=== PATIENT | female | born 1940 | race Caucasian/White ===

== ENCOUNTER 2016-07-31 22:59 | Emergency (ER) | payer MEDICARE, MEDICAID ==
[~2016-07-31] VITALS: Ht 160 cm; Wt 67.0 kg
[~2016-07-31 22:59] MED LIST: ALBU8.5H5 INH; AMLO10TA2 PO; ASPI-515 PO; BENA10TA2 PO; CIPR500T3 PO; DOCU-144 PO; DULCOLAX; FURO-93 PO; GABA600T2 PO; GABAPENTIN; HYDR-3307; LASIX; LEVO75TA; MORP15TA39 PO; NICO1PAT5 TD; ONDA4TAB10 PO; OXYC-229 PO; PROMETHAZINE; ULTRAM
[2016-08-01] MEDS ORDERED: OXYcodone/APAP 5/325MG TABLET ONE (00:17)
[2016-08-01] MEDS ORDERED: OXYcodone/APAP 5/325MG TABLET PO ONE (00:30)
[2016-08-01 01:21] VITALS: BP 166/58
== END 2016-08-01 01:23 | disposition home or self-care (01) ==
LOC: ED 08-01 01:17
DX: S16.1XXA Strain of muscle, fascia and tendon at neck level, initial encounter (principal); S80.02XA Contusion of left knee, initial encounter; E03.9 Hypothyroidism, unspecified; J44.9 Chronic obstructive pulmonary disease, unspecified; I10 Essential (primary) hypertension; F17.210 Nicotine dependence, cigarettes, uncomplicated; W07.XXXA Fall from chair, initial encounter; Y93.89 Activity, other specified; Y92.89 Other specified places as the place of occurrence of the external cause; Y99.8 Other external cause status
CPT/HCPCS: 72040; 99284

== ENCOUNTER 2016-09-04 12:41 | Inpatient (IN) | payer MEDICARE, MEDICAID ==
[~2016-09-04] VITALS: Ht 162.6 cm; Wt 65.0 kg
[2016-09-04] MEDS ORDERED: OXYcodone/APAP 5/325MG TABLET ONE ×2 (13:59→14:41)
[2016-09-04] MEDS ORDERED: OXYcodone/APAP 5/325MG TABLET PO ONE ×2 (14:00→15:00)
[2016-09-04] MEDS ORDERED: HYDROmorphone 1 MG/ML, 1ML ONE (15:48)
[2016-09-04] MEDS ORDERED: ONDANSETRON ODT 4 MG ONE (15:48)
[2016-09-04] MEDS ORDERED: MORPHINE SULFATE 4 MG/ML, 1ML ONE ×2 (15:50→16:01)
[2016-09-04] MEDS ORDERED: ONDANSETRON ODT 4 MG PO ONE (16:00)
[2016-09-04] MEDS ORDERED: MORPHINE SULFATE 4 MG/ML, 1ML IVPush PRN ×2 (16:30→17:00)
[2016-09-04] MEDS ORDERED: SODIUM CHLORIDE FLUSH 10ML SYR IVF ONE (17:00)
[2016-09-04 17:38] LABS: BLOOD UREA NITROGEN 27 mg/dL (7-18)
[2016-09-04] MEDS ORDERED: PROCHLORPERAZINE 5 MG/ML, 2ML IM PRN (19:30)
[2016-09-04 20:23] VITALS: BP 227/78
[2016-09-04] MEDS ORDERED: DOCUSATE 100 MG CAPSULE PO PRN (21:00)
[2016-09-04] MEDS ORDERED: TRAZODONE 50MG TABLET PO PRN (21:00)
[2016-09-04] MEDS ORDERED: BISACODYL 10 MG SUPP PR PRN (21:00)
[2016-09-04] MEDS ORDERED: POLYETHYLENE GLYCOL 17 GM PACKET PO PRN (21:00)
[2016-09-04] MEDS: HEPARIN 5,000 UNITS/ML, 1ML SQ SCH (21:00)
[2016-09-04] MEDS: KETOROLAC 30 MG/1 ML IVPush PRN (22:00)
[2016-09-04] MEDS ORDERED: ALBUTEROL SULFATE 2.5 MG/3 ML NPPB PRN (22:00)
[2016-09-04] MEDS: NICOTINE 14MG/24 HR PATCH.TD24 TD SCH (22:00)
[2016-09-04] MEDS: hydrALAzine 20 MG/ML, 1ML IV PRN (22:00)
[2016-09-04 22:15] VITALS: BP 141/68
[2016-09-04] MEDS: SODIUM CHLORIDE 0.9% 1,000 ML IV SCH (23:59)
[2016-09-05 00:05] VITALS: BP 138/66
[2016-09-05] MEDS: KETOROLAC 30 MG/1 ML IVPush PRN ×4 (04:23→23:23)
[2016-09-05] MEDS: HEPARIN 5,000 UNITS/ML, 1ML SQ SCH ×3 (05:00→21:00)
[2016-09-05 05:14] LABS: BLOOD UREA NITROGEN 30 mg/dL (7-18)
[2016-09-05 05:31] LABS: ASPARTATE AMINO TRANSFERASE 17 U/L (15-37)
[2016-09-05] MEDS: SODIUM CHLORIDE 0.9% 1,000 ML IV SCH ×3 (06:08→20:50)
[2016-09-05 07:10] VITALS: BP 137/69
[2016-09-05] MEDS: ACETAMINOPHEN 325 MG TABLET PO PRN ×3 (08:09→20:47)
[2016-09-05 12:30] VITALS: BP 149/64
[2016-09-05] MEDS ORDERED: ONDANSETRON 4 MG TABLET PO PRN (17:30)
[2016-09-05 19:10] VITALS: BP 182/73
[2016-09-05] MEDS: NICOTINE 14MG/24 HR PATCH.TD24 TD SCH (19:48)
[2016-09-05] MEDS: hydrALAzine 20 MG/ML, 1ML IV PRN (19:48)
[2016-09-05] MEDS ORDERED: OXYcodone/APAP 10/325MG TABLET PO ONE (21:30)
[2016-09-06 00:07] VITALS: BP 175/71
[2016-09-06 01:51] VITALS: BP 186/76
[2016-09-06] MEDS: LABETALOL 5MG/ML, 20ML IV PRN (01:57)
[2016-09-06] MEDS: ACETAMINOPHEN 325 MG TABLET PO PRN ×2 (03:26→08:52)
[2016-09-06] MEDS: SODIUM CHLORIDE 0.9% 1,000 ML IV SCH (03:29)
[2016-09-06 05:00] VITALS: BP 170/84
[2016-09-06] MEDS: HEPARIN 5,000 UNITS/ML, 1ML SQ SCH ×3 (05:00→21:00)
[2016-09-06] MEDS: KETOROLAC 30 MG/1 ML IVPush PRN ×2 (05:25→19:26)
[2016-09-06 05:40] LABS: BLOOD UREA NITROGEN 21 mg/dL (7-18)
[2016-09-06 06:53] VITALS: BP 182/74
[2016-09-06] MEDS: hydrALAzine 20 MG/ML, 1ML IV PRN ×2 (08:52→21:50)
[2016-09-06] MEDS ORDERED: OXYcodone/APAP 10/325MG TABLET ONE (09:41)
[2016-09-06] MEDS ORDERED: OXYcodone/APAP 10/325MG TABLET PO ONE (10:00)
[2016-09-06] MEDS ORDERED: LORazepam 1MG TABLET PO ONE (11:00)
[2016-09-06 12:29] VITALS: BP 157/71
[2016-09-06] MEDS ORDERED: LORazepam 1MG TABLET PO PRN (15:30)
[2016-09-06 21:42] VITALS: BP 191/75
[2016-09-06] MEDS: NICOTINE 14MG/24 HR PATCH.TD24 TD SCH (21:51)
[2016-09-07 00:09] VITALS: BP 180/78
[2016-09-07] MEDS: LABETALOL 5MG/ML, 20ML IV PRN (00:10)
[2016-09-07] MEDS: ACETAMINOPHEN 325 MG TABLET PO PRN (00:10)
[2016-09-07 01:00] VITALS: BP 169/80
[2016-09-07] MEDS: KETOROLAC 30 MG/1 ML IVPush PRN ×2 (01:35→07:51)
[2016-09-07 02:22] VITALS: BP 166/86
[2016-09-07] MEDS ORDERED: OXYcodone/APAP 10/325MG TABLET PO PRN (03:30)
[2016-09-07] MEDS: HEPARIN 5,000 UNITS/ML, 1ML SQ SCH (05:00)
[2016-09-07 05:52] VITALS: BP 173/70
[2016-09-07] MEDS: hydrALAzine 20 MG/ML, 1ML IV PRN (06:27)
[2016-09-07 07:08] VITALS: BP 125/67
[2016-09-07] MEDS ORDERED: LORazepam 1MG TABLET PO ONE (08:00)
== END 2016-09-07 13:27 | disposition home or self-care (01) | DRG 555 ==
LOC: ED 14:28 → EDIP 18:52 → 3NE 20:15
PROVIDERS: ADMIT Internal Medicine; ATTEND Internal Medicine
DX: M25.551 Pain in right hip (principal); R53.2 Functional quadriplegia; E87.1 Hypo-osmolality and hyponatremia; N18.3 Chronic kidney disease, stage 3 (moderate); I12.9 Hypertensive chronic kidney disease with stage 1 through stage 4 chronic kidney disease, or unspecified chronic kidney disease; J44.9 Chronic obstructive pulmonary disease, unspecified; E03.9 Hypothyroidism, unspecified; F17.210 Nicotine dependence, cigarettes, uncomplicated; G89.29 Other chronic pain; R62.7 Adult failure to thrive; W01.0XXA Fall on same level from slipping, tripping and stumbling without subsequent striking against object, initial encounter; W05.0XXA Fall from non-moving wheelchair, initial encounter; Z96.641 Presence of right artificial hip joint; Z99.3 Dependence on wheelchair; Z90.710 Acquired absence of both cervix and uterus; Z90.49 Acquired absence of other specified parts of digestive tract; Z59.0 Homelessness; Z98.1 Arthrodesis status; Z88.6 Allergy status to analgesic agent; Z71.6 Tobacco abuse counseling; Z88.8 Allergy status to other drugs, medicaments and biological substances; M54.9 Dorsalgia, unspecified; Z76.5 Malingerer [conscious simulation]
CPT/HCPCS: 36415; 76857; 80048; 80053; 82040; 83735; 84439; 84443; 85025; 96374; J1885; Q0162; J0360; J7030

== ENCOUNTER 2016-09-27 03:31 | Emergency (ER) | payer MEDICARE, MEDICAID ==
[~2016-09-27] VITALS: Ht 160 cm; Wt 65.0 kg
[2016-09-27 03:38] VITALS: BP 183/92
== END 2016-09-27 05:01 | disposition home or self-care (01) ==
LOC: ED 05:00
DX: M25.561 Pain in right knee (principal); M79.661 Pain in right lower leg; G89.29 Other chronic pain; J44.9 Chronic obstructive pulmonary disease, unspecified; I10 Essential (primary) hypertension; F17.200 Nicotine dependence, unspecified, uncomplicated
CPT/HCPCS: 99283

== ENCOUNTER 2016-09-29 23:37 | Emergency (ER) | payer MEDICARE, MEDICAID ==
[~2016-09-29] VITALS: Ht 160 cm; Wt 54.5 kg
[2016-09-30] MEDS ORDERED: OXYcodone/APAP 10/325MG TABLET ONE (00:19)
[2016-09-30] MEDS ORDERED: OXYcodone/APAP 10/325MG TABLET PO ONE (00:30)
[2016-09-30 01:03] VITALS: BP 176/88
== END 2016-09-30 01:09 | disposition home or self-care (01) ==
LOC: ED 09-30 01:01
DX: G89.4 Chronic pain syndrome (principal); M79.604 Pain in right leg; Z79.82 Long term (current) use of aspirin; Z88.5 Allergy status to narcotic agent
CPT/HCPCS: 99282

== ENCOUNTER 2016-10-01 22:15 | Emergency (ER) | payer MEDICARE, MEDICAID ==
[~2016-10-01] VITALS: Ht 160 cm; Wt 52.6 kg
[2016-10-01 23:53] VITALS: BP 141/74
== END 2016-10-01 23:55 | disposition home or self-care (01) ==
LOC: ED 22:53
DX: G89.29 Other chronic pain (principal); M25.551 Pain in right hip; M25.561 Pain in right knee; M25.562 Pain in left knee; M79.651 Pain in right thigh
CPT/HCPCS: 99281

== ENCOUNTER 2016-10-03 22:27 | Emergency (ER) | payer MEDICARE, MEDICAID ==
[~2016-10-03] VITALS: Ht 160 cm; Wt 60.0 kg
[2016-10-04] MEDS ORDERED: MORPHINE SULFATE 4 MG/ML, 1ML IVPush PRN
[2016-10-04] MEDS ORDERED: SODIUM CHLORIDE 0.9% 1,000ML IVBOLUS ONE
[2016-10-04] MEDS ORDERED: ONDANSETRON 2MG/ML, 2ML IVPush ONE
[2016-10-04] MEDS ORDERED: MORPHINE SULFATE 4 MG/ML, 1ML ONE ×2 (00:36→02:30)
[2016-10-04] MEDS ORDERED: ONDANSETRON 2MG/ML, 2ML ONE (00:36)
[2016-10-04 00:42] LABS: ASPARTATE AMINO TRANSFERASE 17 U/L (15-37); BLOOD UREA NITROGEN 29 mg/dL (7-18)
[2016-10-04 03:22] VITALS: BP 158/73
== END 2016-10-04 04:17 | disposition home or self-care (01) ==
LOC: ED 22:30
DX: R19.7 Diarrhea, unspecified (principal); M25.561 Pain in right knee; M25.551 Pain in right hip; M79.651 Pain in right thigh; G89.29 Other chronic pain; M54.5 Low back pain; I10 Essential (primary) hypertension; E03.9 Hypothyroidism, unspecified; J44.9 Chronic obstructive pulmonary disease, unspecified; F17.210 Nicotine dependence, cigarettes, uncomplicated
CPT/HCPCS: 36415; 80053; 83605; 85025; 87040; 87324; 89055; 93005

== ENCOUNTER 2016-10-04 20:30 | Emergency (ER) | payer MEDICARE, MEDICAID ==
[~2016-10-04] VITALS: Ht 160 cm; Wt 61.4 kg
[2016-10-04 20:32] VITALS: BP 149/82
[2016-10-04] MEDS ORDERED: OXYcodone/APAP 5/325MG TABLET PO ONE (22:00)
[2016-10-04] MEDS ORDERED: OXYcodone/APAP 5/325MG TABLET ONE (22:04)
== END 2016-10-04 22:19 | disposition home or self-care (01) ==
LOC: ED 21:01
DX: M25.551 Pain in right hip (principal); I10 Essential (primary) hypertension; E03.9 Hypothyroidism, unspecified; J44.9 Chronic obstructive pulmonary disease, unspecified
CPT/HCPCS: 99282

== ENCOUNTER 2016-10-07 00:24 | Emergency (ER) | payer MEDICARE, MEDICAID ==
[2016-10-07] MEDS ORDERED: OXYcodone/APAP 5/325MG TABLET ONE (02:32)
== END 2016-10-07 03:05 ==
LOC: ED 00:24
DX: G89.29 Other chronic pain (principal); M79.604 Pain in right leg; R10.9 Unspecified abdominal pain; Z88.6 Allergy status to analgesic agent; Z88.8 Allergy status to other drugs, medicaments and biological substances
CPT/HCPCS: 99281

== ENCOUNTER 2016-11-07 09:49 | Emergency (ER) | payer MEDICARE, MEDICAID ==
[~2016-11-07] VITALS: Ht 160 cm; Wt 60.0 kg
[~2016-11-07 09:49] MED LIST changes: +MORP-52 PO; -MORP15TA39 PO
[2016-11-07] MEDS ORDERED: SODIUM CHLORIDE 0.9% 1,000 ML IV ONE (10:51)
[2016-11-07] MEDS ORDERED: MAALOX/HYOSCYAMINE/LIDOCAINE 45 ML BOTTLE PO ONE (11:00)
[2016-11-07] MEDS ORDERED: FAMOTIDINE 20 MG/2 ML IVP ONE (11:00)
[2016-11-07] MEDS ORDERED: ONDANSETRON 2MG/ML, 2ML IVPush ONE (11:00)
[2016-11-07] MEDS ORDERED: ONDANSETRON 2MG/ML, 2ML ONE (11:52)
[2016-11-07] MEDS ORDERED: MAALOX/HYOSCYAMINE/LIDOCAINE 45 ML BOTTLE ONE (11:52)
[2016-11-07] MEDS ORDERED: FAMOTIDINE 20 MG/2 ML ONE (11:53)
[2016-11-07 12:56] LABS: ASPARTATE AMINO TRANSFERASE 20 U/L (15-37); BLOOD UREA NITROGEN 26 mg/dL (7-18)
[2016-11-07 14:48] VITALS: BP 184/64
== END 2016-11-07 14:52 | disposition home or self-care (01) ==
LOC: ED 10:23
DX: N30.01 Acute cystitis with hematuria (principal); E03.9 Hypothyroidism, unspecified; G89.29 Other chronic pain; I12.9 Hypertensive chronic kidney disease with stage 1 through stage 4 chronic kidney disease, or unspecified chronic kidney disease; N18.3 Chronic kidney disease, stage 3 (moderate); J44.9 Chronic obstructive pulmonary disease, unspecified; Z90.49 Acquired absence of other specified parts of digestive tract; Z99.3 Dependence on wheelchair; M54.9 Dorsalgia, unspecified
CPT/HCPCS: 36415; 74022; 80053; 81001; 83605; 83690; 85025; 87077; 87086; 87186; 96361; 96374; 96375; 99285; J2405; J7030; S0028

== ENCOUNTER 2017-01-02 06:40 | Emergency (ER) | payer MEDICARE, MEDICAID ==
[~2017-01-02] VITALS: Ht 160 cm; Wt 60.0 kg
[~2017-01-02 06:40] MED LIST changes: +NICO1PAT16 TD; -NICO1PAT5 TD; -OXYC-229 PO; +OXYC-307 PO
[2017-01-02 06:41] VITALS: BP 157/104
[2017-01-02] MEDS ORDERED: SODIUM CHLORIDE FLUSH 10ML SYR IVF ONE (07:30)
[2017-01-02] MEDS ORDERED: SODIUM CHLORIDE 0.9% 1,000ML IVBOLUS ONE (07:30)
== END 2017-01-02 08:08 | disposition home or self-care (01) ==
LOC: ED 07:00
DX: R19.7 Diarrhea, unspecified (principal); J44.9 Chronic obstructive pulmonary disease, unspecified; I12.9 Hypertensive chronic kidney disease with stage 1 through stage 4 chronic kidney disease, or unspecified chronic kidney disease; N18.3 Chronic kidney disease, stage 3 (moderate); E03.9 Hypothyroidism, unspecified; Z79.82 Long term (current) use of aspirin; Z90.49 Acquired absence of other specified parts of digestive tract; Z90.710 Acquired absence of both cervix and uterus
CPT/HCPCS: 87324; 99283; 99285

== ENCOUNTER 2017-01-25 08:16 | Emergency (ER) | payer MEDICARE, MEDICAID ==
[~2017-01-25] VITALS: Ht 160 cm; Wt 56.8 kg
[2017-01-25 08:20] VITALS: BP 149/75
== END 2017-01-25 09:34 | disposition home or self-care (01) ==
LOC: ED 09:01
DX: K58.0 Irritable bowel syndrome with diarrhea (principal); E73.9 Lactose intolerance, unspecified; E03.9 Hypothyroidism, unspecified; J44.9 Chronic obstructive pulmonary disease, unspecified; I10 Essential (primary) hypertension; Z90.49 Acquired absence of other specified parts of digestive tract; Z90.710 Acquired absence of both cervix and uterus
CPT/HCPCS: 99282

== ENCOUNTER 2017-05-04 14:20 | Emergency (ER) | payer MEDICARE, MEDICAID ==
[~2017-05-04] VITALS: Ht 160 cm; Wt 62.0 kg
[~2017-05-04 14:20] MED LIST changes: +NICO-487 TD; -NICO1PAT16 TD
[2017-05-04 14:22] VITALS: BP 150/67
[2017-05-04 15:37] LABS: BASOPHILS # (AUTO) 0.02 x10^3/uL (0-0.1); BASOPHILS % (AUTO) 0 % (0-1); EOSINOPHILS # (AUTO) 0.19 x10^3/uL (0-0.4); EOSINOPHILS % (AUTO) 3 % (1-7); LYMPHOCYTES # (AUTO) 1.77 x10^3/uL (1-3.4); LYMPHOCYTES % (AUTO) 31 % (22-44); MD NO; MEAN CORPUSCULAR HEMOGLOBIN 31.4 pg (27.0-34.8); MEAN CORPUSCULAR HGB CONC 33.5 g/dL (32.4-35.8); MEAN CORPUSCULAR VOLUME 93.8 fL (80-100); MEAN PLATELET VOLUME 8.2 fL (7.4-10.4); MONOCYTES # (AUTO) 0.49 x10^3/uL (0.2-0.8); MONOCYTES % (AUTO) 8 % (2-9); NEUTROPHILS # (AUTO) 3.32 x10^3/uL (1.8-6.8); NEUTROPHILS % (AUTO) 57 % (42-75); PLATELET COUNT 156 x10^3/uL (130-400); RED BLOOD COUNT 4.46 x10^6/uL (3.82-5.3); RED CELL DISTRIBUTION WIDTH 13.7 % (9.6-15.2)
[2017-05-04 15:49] LABS: ALBUMIN 3.6 g/dL (3.4-5.0); ANION GAP 5 mmol/L (5-15); CALCIUM 9.2 mg/dL (8.5-10.1); CHLORIDE 106 mmol/L (98-107); CREATININE 1.67 mg/dL (0.55-1.02)
[2017-05-04 16:22] LABS: MICROSCOPIC AUTO
[2017-05-04 16:24] LABS: CULTURE INDICATED? YES
== END 2017-05-04 17:31 | disposition home or self-care (01) ==
LOC: ED 17:25
DX: N30.90 Cystitis, unspecified without hematuria (principal); K14.6 Glossodynia; J44.9 Chronic obstructive pulmonary disease, unspecified; E03.9 Hypothyroidism, unspecified; I12.9 Hypertensive chronic kidney disease with stage 1 through stage 4 chronic kidney disease, or unspecified chronic kidney disease; N18.3 Chronic kidney disease, stage 3 (moderate)
CPT/HCPCS: 36415; 80048; 81001; 82040; 85025; 87077; 87086; 87186; 99284

== ENCOUNTER 2017-05-05 14:23 | Emergency (ER) | payer MEDICARE, MEDICAID ==
[~2017-05-05] VITALS: Ht 160 cm; Wt 61.0 kg
[2017-05-05 14:32] VITALS: BP 185/74
[2017-05-05] MEDS ORDERED: SODIUM CHLORIDE 0.9% 1,000 ML IV ONE (14:36)
[2017-05-05 14:54] LABS: BASOPHILS # (AUTO) 0.03 x10^3/uL (0-0.1); BASOPHILS % (AUTO) 1 % (0-1); EOSINOPHILS # (AUTO) 0.15 x10^3/uL (0-0.4); EOSINOPHILS % (AUTO) 2 % (1-7); LYMPHOCYTES # (AUTO) 1.64 x10^3/uL (1-3.4); LYMPHOCYTES % (AUTO) 25 % (22-44); MD NO; MEAN CORPUSCULAR HGB CONC 34.1 g/dL (32.4-35.8); MEAN CORPUSCULAR VOLUME 93.9 fL (80-100); MEAN PLATELET VOLUME 8.3 fL (7.4-10.4); MONOCYTES # (AUTO) 0.46 x10^3/uL (0.2-0.8); MONOCYTES % (AUTO) 7 % (2-9); NEUTROPHILS # (AUTO) 4.26 x10^3/uL (1.8-6.8); NEUTROPHILS % (AUTO) 65 % (42-75); PLATELET COUNT 154 x10^3/uL (130-400); RED CELL DISTRIBUTION WIDTH 13.6 % (9.6-15.2)
[2017-05-05] MEDS ORDERED: PLEASE ENTER HEIGHT AND WEIGHT MC SCH (15:00)
[2017-05-05] MEDS ORDERED: SODIUM CHLORIDE FLUSH 10ML SYR IVF ONE (15:00)
[2017-05-05] MEDS ORDERED: SODIUM CHLORIDE 0.9% 1,000ML IVBOLUS ONE (15:00)
[2017-05-05] MEDS ORDERED: MECLIZINE CHEWABLE 25 MG TAB PO ONE (15:00)
[2017-05-05 15:05] LABS: ALBUMIN 3.6 g/dL (3.4-5.0); ANION GAP 6 mmol/L (5-15); CALCIUM 8.9 mg/dL (8.5-10.1); CHLORIDE 103 mmol/L (98-107)
[2017-05-05] MEDS ORDERED: MECLIZINE CHEWABLE 25 MG TAB ONE (15:24)
== END 2017-05-05 17:25 | disposition home or self-care (01) ==
LOC: ED 17:06
DX: R42 Dizziness and giddiness (principal); E03.9 Hypothyroidism, unspecified; F17.210 Nicotine dependence, cigarettes, uncomplicated; J44.9 Chronic obstructive pulmonary disease, unspecified; I12.9 Hypertensive chronic kidney disease with stage 1 through stage 4 chronic kidney disease, or unspecified chronic kidney disease; N18.3 Chronic kidney disease, stage 3 (moderate)
CPT/HCPCS: 36415; 71045; 80048; 82040; 85025; 99285

== ENCOUNTER 2017-05-24 12:18 | Inpatient (IN) | payer MEDICARE, MEDICAID ==
[~2017-05-24] VITALS: Ht 160 cm; Wt 71.8 kg
[2017-05-24] MEDS ORDERED: SODIUM CHLORIDE FLUSH 10ML SYR IVF ONE (13:00)
[2017-05-24] MEDS ORDERED: ONDANSETRON 2MG/ML, 2ML IVPush ONE (13:00)
[2017-05-24] MEDS ORDERED: SODIUM CHLORIDE 0.9% 1,000ML IVBOLUS ONE (13:00)
[2017-05-24] MEDS ORDERED: LORazepam 2 MG/ML, 1ML IVPush ONE (13:00)
[2017-05-24 13:20] LABS: BASOPHILS # (AUTO) 0.03 x10^3/uL (0-0.1); BASOPHILS % (AUTO) 0 % (0-1); EOSINOPHILS # (AUTO) 0.12 x10^3/uL (0-0.4); EOSINOPHILS % (AUTO) 2 % (1-7); LYMPHOCYTES # (AUTO) 1.13 x10^3/uL (1-3.4); LYMPHOCYTES % (AUTO) 18 % (22-44); MD NO; MEAN CORPUSCULAR HEMOGLOBIN 32.2 pg (27.0-34.8); MEAN CORPUSCULAR HGB CONC 34.5 g/dL (32.4-35.8); MEAN CORPUSCULAR VOLUME 93.3 fL (80-100); MONOCYTES % (AUTO) 5 % (2-9); NEUTROPHILS # (AUTO) 4.68 x10^3/uL (1.8-6.8); NEUTROPHILS % (AUTO) 75 % (42-75); PLATELET COUNT 165 x10^3/uL (130-400); RED BLOOD COUNT 4.21 x10^6/uL (3.82-5.3); RED CELL DISTRIBUTION WIDTH 13.4 % (9.6-15.2)
[2017-05-24 13:35] LABS: TROPONIN I < 0.015 ng/mL (0.000-0.045)
[2017-05-24] MEDS ORDERED: LORazepam 1MG TABLET ONE (13:42)
[2017-05-24] MEDS ORDERED: LORazepam 1MG TABLET PO ONE ×2 (14:00→14:30)
[2017-05-24 14:33] LABS: ALBUMIN 3.4 g/dL (3.4-5.0); ANION GAP 7 mmol/L (5-15); CHLORIDE 110 mmol/L (98-107); CREATININE 1.71 mg/dL (0.55-1.02)
[2017-05-24 14:59] LABS: CULTURE INDICATED? YES; MICROSCOPIC INDICATED
[2017-05-24] MEDS ORDERED: CEFTRIAXONE 1,000 MG in SODIUM CHLORIDE 0.9% 50 ML IV ONE (15:30)
[2017-05-24] MEDS ORDERED: SODIUM CHLORIDE 0.9% 1,000 ML IV SCH (16:05)
[2017-05-24] MEDS ORDERED: ONDANSETRON 2MG/ML, 2ML IVPush PRN (16:30)
[2017-05-24] MEDS ORDERED: ONDANSETRON ODT 4 MG PO PRN (16:30)
[2017-05-24] MEDS ORDERED: TEMAZEPAM 15 MG CAPSULE PO PRN (16:30)
[2017-05-24] MEDS ORDERED: NICOTINE 21 MG/24 HR PATCH.TD24 TD SCH (16:30)
[2017-05-24] MEDS ORDERED: LABETALOL 5MG/ML, 20ML IVPush PRN (16:30)
[2017-05-24 16:40] LABS: ALBUMIN 3.2 g/dL (3.4-5.0); BILIRUBIN, DIRECT 0.2 mg/dL (0.1-0.2)
[2017-05-24 16:43] LABS: BILIRUBIN,INDIRECT 0.3 mg/dL (0.0-2.0); BILIRUBIN,TOTAL 0.5 mg/dL (0.2-1.0); TOTAL PROTEIN 7.3 g/dL (6.4-8.2)
[2017-05-24 17:28] VITALS: BP 155/81
[2017-05-24] MEDS: HEPARIN 5,000 UNITS/ML, 1ML SQ SCH (17:42)
[2017-05-24] MEDS: BENAZEPRIL 5 MG TABLET PO SCH (21:00)
[2017-05-24 21:01] LABS: TROPONIN I 0.023 ng/mL (0.000-0.045)
[2017-05-24 21:11] VITALS: BP 128/77
[2017-05-24] MEDS: morphine SULFATE 10 MG/ML, 1ML IVPush PRN (21:12)
[2017-05-25] MEDS: morphine SULFATE 10 MG/ML, 1ML IVPush PRN ×3 (00:18→07:20)
[2017-05-25] MEDS: HEPARIN 5,000 UNITS/ML, 1ML SQ SCH ×2 (03:02→08:51)
[2017-05-25 03:25] VITALS: BP 133/80
[2017-05-25 05:16] LABS: BASOPHILS # (AUTO) 0.04 x10^3/uL (0-0.1); BASOPHILS % (AUTO) 1 % (0-1); EOSINOPHILS # (AUTO) 0.29 x10^3/uL (0-0.4); EOSINOPHILS % (AUTO) 5 % (1-7); LYMPHOCYTES # (AUTO) 1.87 x10^3/uL (1-3.4); LYMPHOCYTES % (AUTO) 32 % (22-44); MD NO; MEAN CORPUSCULAR HEMOGLOBIN 31.6 pg (27.0-34.8); MEAN CORPUSCULAR HGB CONC 33.7 g/dL (32.4-35.8); MEAN CORPUSCULAR VOLUME 93.7 fL (80-100); MEAN PLATELET VOLUME 7.9 fL (7.4-10.4); MONOCYTES # (AUTO) 0.49 x10^3/uL (0.2-0.8); MONOCYTES % (AUTO) 8 % (2-9); NEUTROPHILS # (AUTO) 3.15 x10^3/uL (1.8-6.8); NEUTROPHILS % (AUTO) 54 % (42-75); PLATELET COUNT 158 x10^3/uL (130-400); RED BLOOD COUNT 3.98 x10^6/uL (3.82-5.3); RED CELL DISTRIBUTION WIDTH 13.5 % (9.6-15.2)
[2017-05-25 05:29] LABS: ALBUMIN 2.9 g/dL (3.4-5.0); ANION GAP 7 mmol/L (5-15); CALCIUM 8.7 mg/dL (8.5-10.1); CHLORIDE 112 mmol/L (98-107)
[2017-05-25 05:42] LABS: ALANINE AMINOTRANSFERASE 15 U/L (12-78); ALKALINE PHOSPHATASE 96 U/L (45-117); BILIRUBIN,TOTAL 0.4 mg/dL (0.2-1.0); CREATININE 1.58 mg/dL (0.55-1.02); TOTAL PROTEIN 6.7 g/dL (6.4-8.2)
[2017-05-25] MEDS ORDERED: LEVOTHYROXINE 75 MCG TABLET PO SCH (06:00)
[2017-05-25 07:17] VITALS: BP 144/72
[2017-05-25] MEDS ORDERED: PANTOPROZOLE 40MG TABLET PO SCH (07:30)
[2017-05-25] MEDS ORDERED: ASPIRIN 81 MG TABLET EC PO SCH (09:00)
[2017-05-25] MEDS ORDERED: CEFTRIAXONE PMX 1GM/50ML 50 ML IV SCH (15:00)
== END 2017-05-25 10:17 | disposition left against medical advice (07) | DRG 690 ==
LOC: ED 12:52 → EDIP 15:27 → 4WST 16:40
PROVIDERS: ADMIT Internal Medicine; ATTEND Internal Medicine
PROC: 0T9B70Z Drainage of Bladder with Drainage Device, Via Natural or Artificial Opening (ICD-10-PCS; principal; 2017-05-24)
DX: N30.90 Cystitis, unspecified without hematuria (principal); I13.0 Hypertensive heart and chronic kidney disease with heart failure and stage 1 through stage 4 chronic kidney disease, or unspecified chronic kidney disease; I50.9 Heart failure, unspecified; I24.9 Acute ischemic heart disease, unspecified; J44.9 Chronic obstructive pulmonary disease, unspecified; E03.9 Hypothyroidism, unspecified; R55 Syncope and collapse; E66.9 Obesity, unspecified; F17.210 Nicotine dependence, cigarettes, uncomplicated; G89.4 Chronic pain syndrome; N18.9 Chronic kidney disease, unspecified; K52.9 Noninfective gastroenteritis and colitis, unspecified; Z53.20 Procedure and treatment not carried out because of patient's decision for unspecified reasons; M54.9 Dorsalgia, unspecified; R21 Rash and other nonspecific skin eruption; R41.82 Altered mental status, unspecified; R42 Dizziness and giddiness; R94.31 Abnormal electrocardiogram [ECG] [EKG]; Z88.5 Allergy status to narcotic agent; Z68.28 Body mass index [BMI] 28.0-28.9, adult; Z59.0 Homelessness; Z88.9 Allergy status to unspecified drugs, medicaments and biological substances; Z79.82 Long term (current) use of aspirin; I49.9 Cardiac arrhythmia, unspecified; E86.0 Dehydration; R41.0 Disorientation, unspecified
CPT/HCPCS: 36415; 71045; 80048; 80053; 80076; 81001; 82040; 82140; 82550; 83605; 83735; 84100; 84443; 84484; 85025; 87040; 87077; 87086; 87186; 93005; 99285; J1644; J2270; J7030

== ENCOUNTER 2017-06-24 17:42 | Emergency (ER) | payer MEDICARE, MEDICAID ==
[~2017-06-24] VITALS: Ht 160 cm; Wt 60.0 kg
[2017-06-24 17:52] VITALS: BP 169/75
== END 2017-06-24 19:46 | disposition left against medical advice (07) ==
LOC: ED 19:40
DX: M79.605 Pain in left leg (principal); M79.604 Pain in right leg
CPT/HCPCS: 99281

== ENCOUNTER 2017-06-25 01:24 | Emergency (ER) | payer MEDICARE, MEDICAID ==
[~2017-06-25] VITALS: Ht 160 cm; Wt 60.0 kg
[2017-06-25] MEDS ORDERED: IBUPROFEN 200 MG TABLET PO ONE (02:00)
[2017-06-25] MEDS ORDERED: IBUPROFEN 200 MG TABLET ONE (02:21)
[2017-06-25] MEDS ORDERED: OXYcodone/APAP 5/325MG TABLET ONE (02:41)
[2017-06-25 02:45] VITALS: BP 168/90
[2017-06-25] MEDS ORDERED: OXYcodone/APAP 5/325MG TABLET PO ONE (03:00)
== END 2017-06-25 02:47 | disposition home or self-care (01) ==
LOC: ED 01:44
DX: M79.662 Pain in left lower leg (principal); M79.661 Pain in right lower leg; J44.9 Chronic obstructive pulmonary disease, unspecified; E03.9 Hypothyroidism, unspecified; I10 Essential (primary) hypertension
CPT/HCPCS: 99283

== ENCOUNTER 2017-06-25 21:15 | Emergency (ER) | payer MEDICARE, MEDICAID ==
[~2017-06-25] VITALS: Ht 160 cm; Wt 63.6 kg
[2017-06-25 21:50] VITALS: BP 148/84
== END 2017-06-25 22:41 | disposition left against medical advice (07) ==
LOC: ED 22:11
DX: R19.7 Diarrhea, unspecified (principal); E03.9 Hypothyroidism, unspecified; J44.9 Chronic obstructive pulmonary disease, unspecified; I10 Essential (primary) hypertension; Z90.49 Acquired absence of other specified parts of digestive tract; Z90.710 Acquired absence of both cervix and uterus
CPT/HCPCS: 99281

== ENCOUNTER 2017-08-17 16:47 | Emergency (ER) | payer MEDICARE, MEDICAID ==
[~2017-08-17] VITALS: Ht 162.6 cm; Wt 61.3 kg
[2017-08-17] MEDS ORDERED: LISINOPRIL 10 MG TABLET PO ONE (17:00)
[2017-08-17 17:22] LABS: BASOPHILS # (AUTO) 0.03 x10^3/uL (0-0.1); BASOPHILS % (AUTO) 1 % (0-1); EOSINOPHILS # (AUTO) 0.12 x10^3/uL (0-0.4); EOSINOPHILS % (AUTO) 2 % (1-7); LYMPHOCYTES # (AUTO) 1.62 x10^3/uL (1-3.4); LYMPHOCYTES % (AUTO) 25 % (22-44); MD NO; MEAN CORPUSCULAR HEMOGLOBIN 31.5 pg (27.0-34.8); MEAN CORPUSCULAR HGB CONC 34.2 g/dL (32.4-35.8); MEAN CORPUSCULAR VOLUME 92.3 fL (80-100); MEAN PLATELET VOLUME 8.4 fL (7.4-10.4); MONOCYTES # (AUTO) 0.49 x10^3/uL (0.2-0.8); MONOCYTES % (AUTO) 8 % (2-9); NEUTROPHILS # (AUTO) 4.16 x10^3/uL (1.8-6.8); NEUTROPHILS % (AUTO) 65 % (42-75); PLATELET COUNT 148 x10^3/uL (130-400); RED BLOOD COUNT 4.51 x10^6/uL (3.82-5.3); RED CELL DISTRIBUTION WIDTH 13.7 % (9.6-15.2)
[2017-08-17 17:30] LABS: ALBUMIN 3.2 g/dL (3.4-5.0); ANION GAP 6 mmol/L (5-15); CALCIUM 8.7 mg/dL (8.5-10.1); CHLORIDE 110 mmol/L (98-107); CREATININE 1.62 mg/dL (0.55-1.02)
[2017-08-17] MEDS ORDERED: LISINOPRIL 10 MG TABLET ONE (17:35)
[2017-08-17] MEDS ORDERED: OXYcodone/APAP 10/325MG TABLET ONE (18:29)
[2017-08-17] MEDS ORDERED: OXYcodone/APAP 5/325MG TABLET PO ONE (18:30)
[2017-08-17 18:40] VITALS: BP 187/88
[2017-08-17] MEDS ORDERED: OXYcodone/APAP 10/325MG TABLET PO ONE (19:00)
== END 2017-08-17 18:44 | disposition home or self-care (01) ==
LOC: ED 17:55
DX: I10 Essential (primary) hypertension (principal); E03.9 Hypothyroidism, unspecified; I12.9 Hypertensive chronic kidney disease with stage 1 through stage 4 chronic kidney disease, or unspecified chronic kidney disease; J44.9 Chronic obstructive pulmonary disease, unspecified; K52.9 Noninfective gastroenteritis and colitis, unspecified; N18.3 Chronic kidney disease, stage 3 (moderate); Z79.82 Long term (current) use of aspirin; Z88.5 Allergy status to narcotic agent; Z90.49 Acquired absence of other specified parts of digestive tract
CPT/HCPCS: 36415; 80048; 82040; 85025; 93005; 99285

== ENCOUNTER 2017-11-02 19:21 | Emergency (ER) | payer MEDICARE, MEDICAID ==
[~2017-11-02] VITALS: Ht 160 cm; Wt 67.9 kg
[2017-11-02 20:26] LABS: ALBUMIN 3.6 g/dL (3.4-5.0); ANION GAP 5 mmol/L (5-15); CALCIUM 9.3 mg/dL (8.5-10.1); CHLORIDE 108 mmol/L (98-107); CREATININE 1.96 mg/dL (0.55-1.02)
[2017-11-02 20:41] VITALS: BP 158/92
== END 2017-11-02 21:10 | disposition home or self-care (01) ==
LOC: ED 19:49
DX: I12.9 Hypertensive chronic kidney disease with stage 1 through stage 4 chronic kidney disease, or unspecified chronic kidney disease (principal); N18.3 Chronic kidney disease, stage 3 (moderate); J44.9 Chronic obstructive pulmonary disease, unspecified; E03.9 Hypothyroidism, unspecified; F17.200 Nicotine dependence, unspecified, uncomplicated; Z88.5 Allergy status to narcotic agent
CPT/HCPCS: 36415; 80048; 82040; 99284

== ENCOUNTER 2017-11-29 14:42 | Observation (INO) | payer MEDICARE, MEDICAID ==
[~2017-11-29] VITALS: Ht 160 cm; Wt 76.3 kg
[~2017-11-29 14:42] MED LIST changes: -BENA10TA2 PO; +BENA10TA4 PO; +CARV3.1212 PO; +DOXY100T PO; +FLUT1AER INH; +GUAI600T31 PO; -LEVO75TA; +LEVO75TA PO; +MONT10TA9 PO; +PRED10TA PO
[2017-11-29 15:52] LABS: BASOPHILS # (AUTO) 0.05 x10^3/uL (0-0.1); BASOPHILS % (AUTO) 1 % (0-1); EOSINOPHILS # (AUTO) 0.59 x10^3/uL (0-0.4); EOSINOPHILS % (AUTO) 8 % (1-7); LYMPHOCYTES # (AUTO) 1.59 x10^3/uL (1-3.4); LYMPHOCYTES % (AUTO) 22 % (22-44); MD NO; MEAN CORPUSCULAR HEMOGLOBIN 31.1 pg (27.0-34.8); MEAN CORPUSCULAR HGB CONC 33.9 g/dL (32.4-35.8); MEAN CORPUSCULAR VOLUME 91.8 fL (80-100); MEAN PLATELET VOLUME 7.8 fL (7.4-10.4); MONOCYTES # (AUTO) 0.66 x10^3/uL (0.2-0.8); MONOCYTES % (AUTO) 9 % (2-9); NEUTROPHILS % (AUTO) 60 % (42-75); PLATELET COUNT 178 x10^3/uL (130-400); RED BLOOD COUNT 4.67 x10^6/uL (3.82-5.3)
[2017-11-29 15:58] LABS: ALANINE AMINOTRANSFERASE 36 U/L (12-78); ALBUMIN 3.5 g/dL (3.4-5.0); ANION GAP 7 mmol/L (5-15); CHLORIDE 101 mmol/L (98-107); CREATININE 2.26 mg/dL (0.55-1.02)
[2017-11-29 16:02] LABS: ALKALINE PHOSPHATASE 131 U/L (45-117); BILIRUBIN,TOTAL 0.6 mg/dL (0.2-1.0); INTERNATIONAL NORMALIZED RATIO 0.97 (0.93-1.1); PROTHROMBIN TIME 10.1 Seconds (9.6-11.5); TOTAL PROTEIN 7.4 g/dL (6.4-8.2); TROPONIN I < 0.015 ng/mL (0.000-0.045)
[2017-11-29] MEDS ORDERED: SODIUM CHLORIDE 0.9% 1,000ML IVBOLUS ONE (16:30)
[2017-11-29] MEDS ORDERED: BENA1TAB8 PO (17:17)
[2017-11-29] MEDS ORDERED: ALBU18HF INH (17:17)
[2017-11-29] MEDS ORDERED: FURO-93 PO (17:18)
[2017-11-29] MEDS ORDERED: GABA-827 PO (17:20)
[2017-11-29] MEDS ORDERED: OMEP10CA4 PO (17:21)
[2017-11-29] MEDS ORDERED: PANT20TA2 PO (17:22)
[2017-11-29] MEDS ORDERED: LANS30CA PO (17:29)
[2017-11-29] MEDS ORDERED: PANT40TA3 PO (17:29)
[2017-11-29] MEDS ORDERED: SODIUM CHLORIDE FLUSH 10ML SYR IVF PRN (17:30)
[2017-11-29] MEDS: SODIUM POLYSTYRENE SULFONATE ORAL SUSP PO ONE ×2 (17:30→22:04)
[2017-11-29] MEDS ORDERED: ACETAMINOPHEN 325 MG TABLET PO PRN (17:30)
[2017-11-29] MEDS ORDERED: ONDANSETRON 2MG/ML, 2ML IVPush PRN (17:30)
[2017-11-29 19:25] VITALS: BP 122/61
[2017-11-29] MEDS: OXYcodone/APAP 10/325MG TABLET PO PRN (20:42)
[2017-11-29] MEDS: HEPARIN 5,000 UNITS/ML, 1ML SQ SCH (20:42)
[2017-11-29] MEDS: CARVEDILOL 3.125 MG TABLET PO SCH (20:42)
[2017-11-29] MEDS: ALBUTEROL SULFATE 2.5 MG/3 ML NPPB SCH (21:00)
[2017-11-30 01:24] VITALS: BP 107/69
[2017-11-30] MEDS: OXYcodone/APAP 10/325MG TABLET PO PRN ×2 (02:42→10:28)
[2017-11-30] MEDS: ALBUTEROL SULFATE 2.5 MG/3 ML NPPB SCH ×2 (02:56→07:10)
[2017-11-30 05:35] LABS: CHLORIDE 103 mmol/L (98-107)
[2017-11-30 05:46] LABS: ALANINE AMINOTRANSFERASE 34 U/L (12-78); ALBUMIN 3.1 g/dL (3.4-5.0); ALKALINE PHOSPHATASE 114 U/L (45-117); ANION GAP 10 mmol/L (5-15); BILIRUBIN,TOTAL 0.7 mg/dL (0.2-1.0); CALCIUM 8.7 mg/dL (8.5-10.1); CHOL/HDL RATIO 3.3; CHOLESTEROL, TOTAL 157 mg/dL (140-239); CREATININE 2.14 mg/dL (0.55-1.02); HDL CHOL % 31 % (28-40); HDL CHOLESTEROL (DIRECT) 48 mg/dL (40-60); LDL CHOLESTEROL,CALCULATED 72 mg/dL (54-169); LDL/HDL RATIO 1.5 (0.5-3.0); TRIGLYCERIDES 183 mg/dL (50-200); VLDL CHOLESTEROL 37 mg/dL (0-25)
[2017-11-30] MEDS: HEPARIN 5,000 UNITS/ML, 1ML SQ SCH ×2 (05:55→13:00)
[2017-11-30 06:00] VITALS: BP 115/56
[2017-11-30] MEDS: CARVEDILOL 3.125 MG TABLET PO SCH (06:00)
[2017-11-30 06:28] VITALS: BP 125/71
[2017-11-30] MEDS ORDERED: ASPIRIN 81 MG TABLET EC PO SCH (09:00)
[2017-11-30] MEDS ORDERED: FLUTICASONE/VILANTEROL 100-25MCG/INH INH SCH (09:00)
[2017-11-30] MEDS ORDERED: LEVOTHYROXINE 75 MCG TABLET PO SCH (09:00)
[2017-11-30] MEDS ORDERED: FUROSEMIDE 20 MG TABLET PO SCH (09:00)
[2017-11-30] MEDS ORDERED: GABAPENTIN 300 MG CAPSULE PO SCH (09:00)
[2017-11-30 12:36] VITALS: BP 104/64
== END 2017-11-30 15:28 | disposition home or self-care (01) ==
LOC: ED 15:13 → SUATTDRO 17:01 → 4EST 17:18 → DCLOUNGE 11-30 15:13
PROVIDERS: ADMIT Internal Medicine; ATTEND Internal Medicine
DX: R47.81 Slurred speech (principal); J44.9 Chronic obstructive pulmonary disease, unspecified; I13.0 Hypertensive heart and chronic kidney disease with heart failure and stage 1 through stage 4 chronic kidney disease, or unspecified chronic kidney disease; I50.9 Heart failure, unspecified; N18.4 Chronic kidney disease, stage 4 (severe); N17.9 Acute kidney failure, unspecified; E03.9 Hypothyroidism, unspecified; F11.20 Opioid dependence, uncomplicated; G89.29 Other chronic pain; K21.9 Gastro-esophageal reflux disease without esophagitis; M54.5 Low back pain; Z59.0 Homelessness; Z79.82 Long term (current) use of aspirin; Z82.49 Family history of ischemic heart disease and other diseases of the circulatory system; Z87.891 Personal history of nicotine dependence
CPT/HCPCS: 36415; 80053; 80061; 83880; 84484; 85025; 85610; 85730; 93005; 93880; 94640; 96372; 99285; G0378; J1644; J7030; J7613

== ENCOUNTER 2017-12-12 23:07 | Inpatient (IN) | payer MEDICARE, MEDICAID ==
[~2017-12-12] VITALS: Ht 160 cm; Wt 84.6 kg
[~2017-12-12 23:07] MED LIST changes: +ALBU18HF INH; +BENA1TAB8 PO; +GABA-827 PO; +LANS30CA PO; +OMEP10CA4 PO; +PANT20TA2 PO; +PANT40TA3 PO
[2017-12-12] MEDS ORDERED: ALBUTEROL/IPRATROPIUM 2.5MG/0.5MG, 3 ML ONE (23:50)
[2017-12-13] MEDS ORDERED: SODIUM CHLORIDE 0.9% 1,000ML IVBOLUS ONE (01:00)
[2017-12-13] MEDS ORDERED: SODIUM CHLORIDE FLUSH 10ML SYR IVF ONE (01:00)
[2017-12-13 01:10] LABS: BASOPHILS # (AUTO) 0.05 x10^3/uL (0-0.1); BASOPHILS % (AUTO) 0 % (0-1); EOSINOPHILS % (AUTO) 4 % (1-7); LYMPHOCYTES # (AUTO) 2.13 x10^3/uL (1-3.4); LYMPHOCYTES % (AUTO) 14 % (22-44); MD NO; MEAN CORPUSCULAR HEMOGLOBIN 31.1 pg (27.0-34.8); MEAN CORPUSCULAR HGB CONC 33.6 g/dL (32.4-35.8); MEAN CORPUSCULAR VOLUME 92.3 fL (80-100); MEAN PLATELET VOLUME 7.7 fL (7.4-10.4); MONOCYTES # (AUTO) 0.48 x10^3/uL (0.2-0.8); MONOCYTES % (AUTO) 3 % (2-9); NEUTROPHILS # (AUTO) 11.71 x10^3/uL (1.8-6.8); NEUTROPHILS % (AUTO) 78 % (42-75); PLATELET COUNT 168 x10^3/uL (130-400); RED BLOOD COUNT 4.88 x10^6/uL (3.82-5.3); RED CELL DISTRIBUTION WIDTH 13.4 % (9.6-15.2)
[2017-12-13 01:21] LABS: ALANINE AMINOTRANSFERASE 29 U/L (12-78); ALBUMIN 3.4 g/dL (3.4-5.0); ANION GAP 8 mmol/L (5-15); CALCIUM 8.9 mg/dL (8.5-10.1); CHLORIDE 107 mmol/L (98-107)
[2017-12-13 01:35] LABS: ALKALINE PHOSPHATASE 367 U/L (45-117); BILIRUBIN,TOTAL 0.9 mg/dL (0.2-1.0); TOTAL PROTEIN 7.6 g/dL (6.4-8.2); TROPONIN I < 0.015 ng/mL (0.000-0.045)
[2017-12-13 01:48] LABS: CLOSTRIDIUM DIFFICILE ANTIGEN NEGATIVE; CLOSTRIDIUM DIFFICILE TOXIN NEGATIVE (Negative)
[2017-12-13 01:54] LABS: CULTURE INDICATED? YES; MICROSCOPIC INDICATED
[2017-12-13] MEDS ORDERED: CEFTRIAXONE PMX 1GM/50ML 50 ML ONE (03:08)
[2017-12-13] MEDS ORDERED: MORPHINE SULFATE 4 MG/ML, 1ML ONE ×2 (03:08→03:48)
[2017-12-13] MEDS ORDERED: ONDANSETRON 2MG/ML, 2ML ONE (03:08)
[2017-12-13] MEDS: MORPHINE SULFATE 4 MG/ML, 1ML IVPush PRN ×2 (03:16→03:53)
[2017-12-13] MEDS ORDERED: CEFTRIAXONE 1,000 MG in SODIUM CHLORIDE 0.9% 50 ML IV ONE (03:30)
[2017-12-13] MEDS ORDERED: ONDANSETRON 2MG/ML, 2ML IVPush ONE (03:30)
[2017-12-13] MEDS ORDERED: SODIUM CHLORIDE 0.9% 1,000 ML IV ONE (04:45)
[2017-12-13] MEDS ORDERED: ONDANSETRON 2MG/ML, 2ML IVPush PRN ×2 (05:00→05:30)
[2017-12-13] MEDS ORDERED: MORPHINE SULFATE 4 MG/ML, 1ML IVPush PRN (05:00)
[2017-12-13] MEDS ORDERED: TEMPLATE NON-FORMULARY MED. (Albuterol Sulfate (Ventolin Hfa) 0 PUFF(S)) INH SCH (05:30)
[2017-12-13] MEDS ORDERED: CEFTRIAXONE 1,000 MG in SODIUM CHLORIDE 0.9% 50 ML IV SCH (05:30)
[2017-12-13] MEDS ORDERED: ONDANSETRON ODT 4 MG PO PRN (05:30)
[2017-12-13 05:47] VITALS: BP 167/84
[2017-12-13] MEDS: OXYcodone/APAP 10/325MG TABLET PO PRN ×3 (05:59→18:38)
[2017-12-13] MEDS: METRONIDAZOLE PMX 500MG/100ML 100 ML IV SCH ×3 (06:08→21:26)
[2017-12-13] MEDS: CARVEDILOL 3.125 MG TABLET PO SCH ×2 (06:08→17:05)
[2017-12-13] MEDS ORDERED: MAALOX/HYOSCYAMINE/LIDOCAINE 45 ML BTL PO PRN (07:30)
[2017-12-13] MEDS ORDERED: LOPERAMIDE 2 MG CAPSULE PO PRN (07:30)
[2017-12-13] MEDS: morphine SULFATE 10 MG/ML, 1ML IVPush PRN ×2 (07:55→12:00)
[2017-12-13] MEDS: PANTOPRAZOLE 40 MG IV IVPush SCH (07:57)
[2017-12-13] MEDS: LEVOTHYROXINE 75 MCG TABLET PO SCH (07:57)
[2017-12-13] MEDS: GABAPENTIN 300 MG CAPSULE PO SCH (07:58)
[2017-12-13] MEDS: ENOXAPARIN 30 MG/0.3 ML SQ SCH ×2 (07:58→08:07)
[2017-12-13 08:00] VITALS: BP 132/77
[2017-12-13] MEDS: FLUTICASONE/VILANTEROL 100-25MCG/INH INH SCH (08:00)
[2017-12-13] MEDS ORDERED: ASPIRIN 81 MG TABLET EC PO SCH (09:00)
[2017-12-13] MEDS: ALBUTEROL SULFATE 2.5 MG/3 ML NPPB SCH ×4 (10:55→18:53)
[2017-12-13] MEDS: ACETAMINOPHEN 325 MG TABLET PO PRN (12:56)
[2017-12-13 15:16] VITALS: BP 139/65
[2017-12-13 20:31] VITALS: BP 92/57
[2017-12-13] MEDS: SODIUM CHLORIDE 0.9% 1,000 ML IV SCH (21:23)
[2017-12-13 22:35] VITALS: BP 81/44
[2017-12-13] MEDS ORDERED: SODIUM CHLORIDE 0.9%, 500ML IVBOLUS ONE (23:00)
[2017-12-13 23:46] VITALS: BP 95/60
[2017-12-14] VITALS (7 sets, daily range): BP systolic 80–133; BP diastolic 46–69
[2017-12-14 01:21] LABS: ALANINE AMINOTRANSFERASE 29 U/L (12-78); ALBUMIN 2.6 g/dL (3.4-5.0); ANION GAP 5 mmol/L (5-15); CALCIUM 8.2 mg/dL (8.5-10.1); CHLORIDE 113 mmol/L (98-107); CREATININE 2.52 mg/dL (0.55-1.02)
[2017-12-14 01:23] LABS: ALKALINE PHOSPHATASE 160 U/L (45-117); BILIRUBIN,TOTAL 0.6 mg/dL (0.2-1.0); TOTAL PROTEIN 5.9 g/dL (6.4-8.2)
[2017-12-14 01:27] LABS: BASOPHILS # (AUTO) 0.04 x10^3/uL (0-0.1); BASOPHILS % (AUTO) 1 % (0-1); EOSINOPHILS # (AUTO) 0.17 x10^3/uL (0-0.4); EOSINOPHILS % (AUTO) 2 % (1-7); LYMPHOCYTES # (AUTO) 1.31 x10^3/uL (1-3.4); LYMPHOCYTES % (AUTO) 15 % (22-44); MD NO; MEAN CORPUSCULAR HEMOGLOBIN 31.3 pg (27.0-34.8); MEAN CORPUSCULAR HGB CONC 33.6 g/dL (32.4-35.8); MEAN CORPUSCULAR VOLUME 93.1 fL (80-100); MEAN PLATELET VOLUME 7.7 fL (7.4-10.4); MONOCYTES # (AUTO) 0.72 x10^3/uL (0.2-0.8); MONOCYTES % (AUTO) 8 % (2-9); NEUTROPHILS # (AUTO) 6.84 x10^3/uL (1.8-6.8); NEUTROPHILS % (AUTO) 75 % (42-75); PLATELET COUNT 123 x10^3/uL (130-400); RED BLOOD COUNT 3.86 x10^6/uL (3.82-5.3); RED CELL DISTRIBUTION WIDTH 13.4 % (9.6-15.2)
[2017-12-14] MEDS: CEFTRIAXONE 1,000 MG in SODIUM CHLORIDE 0.9% 50 ML IV SCH (03:12)
[2017-12-14] MEDS: CARVEDILOL 3.125 MG TABLET PO SCH (04:34)
[2017-12-14] MEDS: METRONIDAZOLE PMX 500MG/100ML 100 ML IV SCH ×3 (04:42→20:36)
[2017-12-14] MEDS: ALBUTEROL SULFATE 2.5 MG/3 ML NPPB SCH ×4 (06:05→19:56)
[2017-12-14] MEDS: PANTOPRAZOLE 40 MG IV IVPush SCH (08:30)
[2017-12-14] MEDS: LEVOTHYROXINE 75 MCG TABLET PO SCH (08:31)
[2017-12-14] MEDS: FLUTICASONE/VILANTEROL 100-25MCG/INH INH SCH (08:32)
[2017-12-14] MEDS: GABAPENTIN 300 MG CAPSULE PO SCH (08:32)
[2017-12-14] MEDS: ACETAMINOPHEN 325 MG TABLET PO PRN ×2 (08:40→19:55)
[2017-12-14] MEDS: SODIUM CHLORIDE 0.9% 1,000 ML IV SCH (09:00)
[2017-12-15] MEDS: CEFTRIAXONE 1,000 MG in SODIUM CHLORIDE 0.9% 50 ML IV SCH (03:20)
[2017-12-15 03:55] VITALS: BP 143/80
[2017-12-15] MEDS: METRONIDAZOLE PMX 500MG/100ML 100 ML IV SCH ×3 (04:14→20:53)
[2017-12-15] MEDS: ACETAMINOPHEN 325 MG TABLET PO PRN ×3 (05:49→23:24)
[2017-12-15] MEDS: SODIUM CHLORIDE 0.9% 1,000 ML IV SCH (05:50)
[2017-12-15 06:20] LABS: BASOPHILS # (AUTO) 0.03 x10^3/uL (0-0.1); BASOPHILS % (AUTO) 0 % (0-1); EOSINOPHILS # (AUTO) 0.35 x10^3/uL (0-0.4); EOSINOPHILS % (AUTO) 5 % (1-7); LYMPHOCYTES # (AUTO) 1.12 x10^3/uL (1-3.4); LYMPHOCYTES % (AUTO) 15 % (22-44); MD NO; MEAN CORPUSCULAR HEMOGLOBIN 31.8 pg (27.0-34.8); MEAN CORPUSCULAR HGB CONC 34.4 g/dL (32.4-35.8); MEAN CORPUSCULAR VOLUME 92.5 fL (80-100); MONOCYTES # (AUTO) 0.46 x10^3/uL (0.2-0.8); MONOCYTES % (AUTO) 6 % (2-9); NEUTROPHILS # (AUTO) 5.75 x10^3/uL (1.8-6.8); NEUTROPHILS % (AUTO) 75 % (42-75); PLATELET COUNT 115 x10^3/uL (130-400); RED BLOOD COUNT 3.58 x10^6/uL (3.82-5.3); RED CELL DISTRIBUTION WIDTH 13.7 % (9.6-15.2)
[2017-12-15 06:27] LABS: ALBUMIN 2.6 g/dL (3.4-5.0); ANION GAP 4 mmol/L (5-15); CALCIUM 8.4 mg/dL (8.5-10.1); CHLORIDE 115 mmol/L (98-107)
[2017-12-15] MEDS: ALBUTEROL SULFATE 2.5 MG/3 ML NPPB SCH ×5 (07:20→23:39)
[2017-12-15 07:30] VITALS: BP 114/70
[2017-12-15] MEDS: LEVOTHYROXINE 75 MCG TABLET PO SCH (08:37)
[2017-12-15] MEDS: FLUTICASONE/VILANTEROL 100-25MCG/INH INH SCH (08:37)
[2017-12-15] MEDS: GABAPENTIN 300 MG CAPSULE PO SCH (08:38)
[2017-12-15] MEDS ORDERED: SODIUM PHOSPHATE 20 MMOL in SODIUM CHLORIDE 0.9% 500 ML IV ONE (09:00)
[2017-12-15 15:46] VITALS: BP 164/74
[2017-12-15] MEDS ORDERED: LOPERAMIDE 2 MG CAPSULE PO PRN (17:30)
[2017-12-15] MEDS: CARVEDILOL 3.125 MG TABLET PO SCH (17:53)
[2017-12-15] MEDS: OXYcodone/APAP 10/325MG TABLET PO PRN (17:56)
[2017-12-15 19:38] VITALS: BP 168/83
[2017-12-15] MEDS ORDERED: SODIUM CHLORIDE 0.9% 1,000 ML IV SCH (21:00)
[2017-12-16 02:50] VITALS: BP 143/110
[2017-12-16] MEDS: CEFTRIAXONE 1,000 MG in SODIUM CHLORIDE 0.9% 50 ML IV SCH (03:05)
[2017-12-16] MEDS: ALBUTEROL SULFATE 2.5 MG/3 ML NPPB SCH ×3 (03:20→10:37)
[2017-12-16] MEDS: OXYcodone/APAP 10/325MG TABLET PO PRN (03:27)
[2017-12-16] MEDS: CARVEDILOL 3.125 MG TABLET PO SCH (05:04)
[2017-12-16] MEDS: METRONIDAZOLE PMX 500MG/100ML 100 ML IV SCH (05:04)
[2017-12-16] MEDS: ACETAMINOPHEN 325 MG TABLET PO PRN (06:18)
[2017-12-16 08:12] VITALS: BP 139/100
[2017-12-16] MEDS ORDERED: ALBU1.25 NEB (08:17)
[2017-12-16] MEDS ORDERED: SULF1TAB24 PO (08:18)
== END 2017-12-16 11:13 | disposition home or self-care (01) | DRG 682 ==
LOC: ED 12-13 02:18 → EDIP 12-13 04:45 → 4EST 12-13 05:39
PROVIDERS: ADMIT Hospitalist; ATTEND Hospitalist
PROC: 0T9B70Z Drainage of Bladder with Drainage Device, Via Natural or Artificial Opening (ICD-10-PCS; principal; 2017-12-13)
DX: N17.9 Acute kidney failure, unspecified (principal); E43 Unspecified severe protein-calorie malnutrition; F11.20 Opioid dependence, uncomplicated; I13.0 Hypertensive heart and chronic kidney disease with heart failure and stage 1 through stage 4 chronic kidney disease, or unspecified chronic kidney disease; N30.01 Acute cystitis with hematuria; B96.4 Proteus (mirabilis) (morganii) as the cause of diseases classified elsewhere; K52.9 Noninfective gastroenteritis and colitis, unspecified; E03.9 Hypothyroidism, unspecified; E86.0 Dehydration; I50.9 Heart failure, unspecified; J43.9 Emphysema, unspecified; M06.9 Rheumatoid arthritis, unspecified; N18.2 Chronic kidney disease, stage 2 (mild); E86.9 Volume depletion, unspecified; N93.9 Abnormal uterine and vaginal bleeding, unspecified; Z68.33 Body mass index [BMI] 33.0-33.9, adult; Z87.891 Personal history of nicotine dependence; Z90.710 Acquired absence of both cervix and uterus
CPT/HCPCS: 36415; 71045; 74176; 76830; 80048; 80053; 81001; 82040; 83690; 83735; 83880; 84100; 84484; 85025; 87077; 87086; 87186; 87324; 89055; 93005; 94640; 96361; 96374; 96375; 96376; J0696; J1650; J2405; J7613; C9113; J2270; J7030; J7040

== ENCOUNTER 2017-12-17 01:41 | Emergency (ER) | payer MEDICARE, MEDICAID ==
[~2017-12-17] VITALS: Ht 160 cm; Wt 70.0 kg
[~2017-12-17 01:41] MED LIST changes: +ALBU1.25 NEB; +SULF1TAB24 PO
[2017-12-17 01:45] VITALS: BP 175/96
== END 2017-12-17 04:49 | disposition home or self-care (01) ==
LOC: ED 01:43
DX: J44.1 Chronic obstructive pulmonary disease with (acute) exacerbation (principal); J45.901 Unspecified asthma with (acute) exacerbation; E03.9 Hypothyroidism, unspecified; N18.3 Chronic kidney disease, stage 3 (moderate)
CPT/HCPCS: 71045; 93005; 94640; 99284

== ENCOUNTER 2017-12-19 02:56 | Emergency (ER) | payer MEDICARE, MEDICAID ==
[~2017-12-19] VITALS: Ht 162.6 cm; Wt 69.0 kg
[2017-12-19 03:05] VITALS: BP 179/84
[2017-12-19] MEDS ORDERED: ALBUTEROL/IPRATROPIUM 2.5MG/0.5MG, 3 ML NPPB ONE (03:30)
[2017-12-19] MEDS ORDERED: ALBUTEROL/IPRATROPIUM 2.5MG/0.5MG, 3 ML ONE (03:47)
== END 2017-12-19 04:44 | disposition left against medical advice (07) ==
LOC: ED 03:26
DX: J44.1 Chronic obstructive pulmonary disease with (acute) exacerbation (principal); I50.9 Heart failure, unspecified; E03.9 Hypothyroidism, unspecified; N18.3 Chronic kidney disease, stage 3 (moderate); Z90.710 Acquired absence of both cervix and uterus; Z90.89 Acquired absence of other organs; Z90.49 Acquired absence of other specified parts of digestive tract
CPT/HCPCS: 93005; 94640; 99283; J7620

== ENCOUNTER 2018-01-12 10:46 | Emergency (ER) | payer MEDICARE, MEDICAID ==
[~2018-01-12] VITALS: Ht 160 cm; Wt 69.0 kg
[~2018-01-12 10:46] MED LIST changes: -AMLO10TA2 PO; +AMLO10TA6 PO
[2018-01-12] MEDS ORDERED: ONDANSETRON ODT 4 MG PO ONE (11:30)
[2018-01-12 11:43] LABS: ANION GAP 7 mmol/L (5-15); CHLORIDE 107 mmol/L (98-107); CREATININE 1.79 mg/dL (0.55-1.02)
[2018-01-12] MEDS ORDERED: ONDANSETRON ODT 4 MG ONE (11:49)
[2018-01-12 12:06] VITALS: BP 168/68
== END 2018-01-12 12:24 | disposition home or self-care (01) ==
LOC: ED 12:19
DX: I13.0 Hypertensive heart and chronic kidney disease with heart failure and stage 1 through stage 4 chronic kidney disease, or unspecified chronic kidney disease (principal); I50.9 Heart failure, unspecified; R11.2 Nausea with vomiting, unspecified; Z90.49 Acquired absence of other specified parts of digestive tract; E03.9 Hypothyroidism, unspecified; N18.3 Chronic kidney disease, stage 3 (moderate); J44.9 Chronic obstructive pulmonary disease, unspecified
CPT/HCPCS: 36415; 80048; 93005; 99285; Q0162

== ENCOUNTER 2018-01-26 09:50 | Emergency (ER) | payer MEDICARE, MEDICAID ==
[~2018-01-26] VITALS: Ht 160 cm; Wt 75.0 kg
[2018-01-26 11:04] VITALS: BP 156/54
[2018-01-26 12:25] LABS: BASOPHILS # (AUTO) 0.01 x10^3/uL (0-0.1); BASOPHILS % (AUTO) 0 % (0-1); EOSINOPHILS # (AUTO) 0.13 x10^3/uL (0-0.4); EOSINOPHILS % (AUTO) 1 % (1-7); LYMPHOCYTES # (AUTO) 0.84 x10^3/uL (1-3.4); LYMPHOCYTES % (AUTO) 7 % (22-44); MD NO; MEAN CORPUSCULAR HEMOGLOBIN 31.9 pg (27.0-34.8); MEAN CORPUSCULAR HGB CONC 34.3 g/dL (32.4-35.8); MEAN CORPUSCULAR VOLUME 93.1 fL (80-100); MEAN PLATELET VOLUME 8.3 fL (7.4-10.4); MONOCYTES # (AUTO) 0.34 x10^3/uL (0.2-0.8); MONOCYTES % (AUTO) 3 % (2-9); NEUTROPHILS # (AUTO) 11.05 x10^3/uL (1.8-6.8); NEUTROPHILS % (AUTO) 89 % (42-75); PLATELET COUNT 179 x10^3/uL (130-400); RED BLOOD COUNT 4.46 x10^6/uL (3.82-5.3); RED CELL DISTRIBUTION WIDTH 13.6 % (9.6-15.2)
[2018-01-26 12:38] LABS: ALBUMIN 3.6 g/dL (3.4-5.0); ANION GAP 7 mmol/L (5-15); CALCIUM 9.3 mg/dL (8.5-10.1); CHLORIDE 103 mmol/L (98-107); CREATININE 1.81 mg/dL (0.55-1.02)
== END 2018-01-26 12:42 | disposition left against medical advice (07) ==
LOC: ED 12:32
DX: R42 Dizziness and giddiness (principal); E03.9 Hypothyroidism, unspecified; I13.0 Hypertensive heart and chronic kidney disease with heart failure and stage 1 through stage 4 chronic kidney disease, or unspecified chronic kidney disease; N18.3 Chronic kidney disease, stage 3 (moderate); I50.9 Heart failure, unspecified; J44.9 Chronic obstructive pulmonary disease, unspecified; Z90.49 Acquired absence of other specified parts of digestive tract; Z88.6 Allergy status to analgesic agent; Z88.5 Allergy status to narcotic agent; Z88.8 Allergy status to other drugs, medicaments and biological substances; Z79.899 Other long term (current) drug therapy
CPT/HCPCS: 36415; 80048; 82040; 85025; 93005; 99285

== ENCOUNTER 2018-02-15 16:18 | Emergency (ER) | payer MEDICARE, MEDICAID ==
[~2018-02-15] VITALS: Ht 160 cm; Wt 75.0 kg
[2018-02-15 16:39] VITALS: BP 186/90
== END 2018-02-15 17:43 | disposition home or self-care (01) ==
LOC: ED 17:15
DX: R42 Dizziness and giddiness (principal); I13.0 Hypertensive heart and chronic kidney disease with heart failure and stage 1 through stage 4 chronic kidney disease, or unspecified chronic kidney disease; I50.9 Heart failure, unspecified; N18.3 Chronic kidney disease, stage 3 (moderate); J44.9 Chronic obstructive pulmonary disease, unspecified; E03.9 Hypothyroidism, unspecified; Z87.891 Personal history of nicotine dependence; Z90.710 Acquired absence of both cervix and uterus; Z90.49 Acquired absence of other specified parts of digestive tract; Z90.89 Acquired absence of other organs
CPT/HCPCS: 99283

== ENCOUNTER 2018-05-16 12:10 | Emergency (ER) | payer MEDICARE, MEDICAID ==
[~2018-05-16] VITALS: Ht 160 cm; Wt 70.0 kg
[2018-05-16 12:37] VITALS: BP 165/83
--- NOTE | 2018-05-16 12:42 | NUR ---
PT AT THIS TIME HAS REFUSED TRIAGE EKG. UNDERSTANDS THE RISK OF NOT HAVING ONE.
--- NOTE | 2018-05-16 13:17 | NUR ---
pt refused ekg in triage
--- NOTE | 2018-05-16 13:58 | NUR ---
Pt. leonardo ekg @8505 stated "I dont need an ekg, it's just my asthma, i dont want it"
[2018-05-16] MEDS ORDERED: ALBUTEROL SULFATE 2.5 MG/3 ML NPPB ONE (14:00)
[2018-05-16] MEDS ORDERED: SODIUM CHLORIDE FLUSH 10ML SYR IVF ONE (14:00)
[2018-05-16 14:03] LABS: ALBUMIN 3.7 g/dL (3.4-5.0); ANION GAP 6 mmol/L (5-15); CALCIUM 8.9 mg/dL (8.5-10.1); CHLORIDE 103 mmol/L (98-107); CREATININE 1.85 mg/dL (0.55-1.02)
[2018-05-16] MEDS ORDERED: ALBUTEROL SULFATE 2.5 MG/3 ML ONE (14:03)
--- NOTE | 2018-05-16 14:10 | NUR ---
PT IN WC IN THE ROOM REFUSING TO BE ASSISTED TO THE BED AND MONITORING TALKINGIN FULL SENTENCES PO MEDS GIVEN PER ORDERS
[2018-05-16 14:18] LABS: BASOPHILS # (AUTO) 0.06 x10^3/uL (0-0.1); BASOPHILS % (AUTO) 1 % (0-1); EOSINOPHILS # (AUTO) 0.93 x10^3/uL (0-0.4); EOSINOPHILS % (AUTO) 14 % (1-7); LYMPHOCYTES # (AUTO) 1.74 x10^3/uL (1-3.4); LYMPHOCYTES % (AUTO) 27 % (22-44); MD NO; MEAN CORPUSCULAR HEMOGLOBIN 30.9 pg (27.0-34.8); MEAN CORPUSCULAR HGB CONC 33.4 g/dL (32.4-35.8); MEAN CORPUSCULAR VOLUME 92.7 fL (80-100); MEAN PLATELET VOLUME 7.9 fL (7.4-10.4); MONOCYTES % (AUTO) 6 % (2-9); NEUTROPHILS # (AUTO) 3.38 x10^3/uL (1.8-6.8); NEUTROPHILS % (AUTO) 52 % (42-75); PLATELET COUNT 173 x10^3/uL (130-400); RED BLOOD COUNT 4.22 x10^6/uL (3.82-5.3); RED CELL DISTRIBUTION WIDTH 14.8 % (9.6-15.2)
[2018-05-16 14:23] LABS: TROPONIN I < 0.015 ng/mL (0.000-0.045)
== END 2018-05-16 14:52 | disposition home or self-care (01) ==
LOC: ED 14:02
DX: J20.9 Acute bronchitis, unspecified (principal); J44.9 Chronic obstructive pulmonary disease, unspecified; M75.22 Bicipital tendinitis, left shoulder; I11.0 Hypertensive heart disease with heart failure; I50.9 Heart failure, unspecified; Z90.89 Acquired absence of other organs; Z90.49 Acquired absence of other specified parts of digestive tract; Z90.710 Acquired absence of both cervix and uterus; Z87.891 Personal history of nicotine dependence
CPT/HCPCS: 36415; 71046; 80048; 82040; 84484; 85025; 94640; 99284; J7512; J7613

== ENCOUNTER 2018-06-04 16:32 | Emergency (ER) | payer MEDICARE, MEDICAID ==
[~2018-06-04 16:32] MED LIST changes: -AMLO10TA6 PO; +AMLO10TA8 PO; -GABA600T2 PO; +GABA600T7 PO
[2018-06-04 17:26] LABS: BASOPHILS # (AUTO) 0.01 x10^3/uL (0-0.1); BASOPHILS % (AUTO) 0 % (0-1); EOSINOPHILS # (AUTO) 0.04 x10^3/uL (0-0.4); EOSINOPHILS % (AUTO) 1 % (1-7); LYMPHOCYTES # (AUTO) 0.66 x10^3/uL (1-3.4); LYMPHOCYTES % (AUTO) 9 % (22-44); MD NO; MEAN CORPUSCULAR HEMOGLOBIN 31.3 pg (27.0-34.8); MEAN CORPUSCULAR HGB CONC 33.7 g/dL (32.4-35.8); MEAN CORPUSCULAR VOLUME 92.9 fL (80-100); MEAN PLATELET VOLUME 7.2 fL (7.4-10.4); MONOCYTES # (AUTO) 0.37 x10^3/uL (0.2-0.8); MONOCYTES % (AUTO) 5 % (2-9); NEUTROPHILS # (AUTO) 6.63 x10^3/uL (1.8-6.8); NEUTROPHILS % (AUTO) 86 % (42-75); PLATELET COUNT 141 x10^3/uL (130-400); RED BLOOD COUNT 4.38 x10^6/uL (3.82-5.3); RED CELL DISTRIBUTION WIDTH 14.4 % (9.6-15.2)
--- NOTE | 2018-06-04 17:26 | NUR ---
patient wheeled to room by firestopper technicianamee Reagan, patient assisted to bed, on field traffic investigator and pulse ox, EKG shot, chest xray shot, IV access established and blood drawn by this RN and shrimp trawler captain. bed rails up and call light in reach. Patient accompanied by her son Phillip. This RN has cut away the patient's soiled brief, this appears to be days old, is saturated fully, appearing to weigh upwards of 3 kg, the brief has been stuffed with blue absorbent paper towel material at some point. Patient maintains that the brief is "only one day old" but this cannot be true. patient is in pain during all movements, Lisbeht care partially completed but patient unable to lift hips or roll onto her side. no obvious wounds noted but sacrum not fully visualized. socks removed and 2+ edema noted above sock line. CATHY Jones has been to room and updated by this RN.
--- NOTE | 2018-06-04 17:35 | NUR ---
MD Redman at bedside for assessment
--- NOTE | 2018-06-04 17:55 | NUR ---
RN at bedside for straight cath for urine sample. Pt refusing.
[2018-06-04 18:54] LABS: ALANINE AMINOTRANSFERASE 30 U/L (12-78); ALBUMIN 3.2 g/dL (3.4-5.0); ANION GAP 9 mmol/L (5-15); CALCIUM 8.7 mg/dL (8.5-10.1); CHLORIDE 104 mmol/L (98-107); CREATININE 1.55 mg/dL (0.55-1.02)
--- NOTE | 2018-06-04 18:56 | NUR ---
Pt resting on gurney, arguing with son and complaining to RN about having to have BP taken. Pt refusing to provide stool sample.
[2018-06-04 18:58] LABS: ALKALINE PHOSPHATASE 91 U/L (45-117); BILIRUBIN,TOTAL 0.7 mg/dL (0.2-1.0); TOTAL PROTEIN 6.6 g/dL (6.4-8.2)
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
[2018-06-04] MEDS ORDERED: ALBUTEROL/IPRATROPIUM 2.5MG/0.5MG, 3 ML ONE (19:51)
--- NOTE | 2018-06-04 19:53 | NUR ---
RT AT BEDSIDE.
[2018-06-04] MEDS ORDERED: ALBUTEROL/IPRATROPIUM 2.5MG/0.5MG, 3 ML NPPB SCH (20:00)
[2018-06-04 20:17] VITALS: BP 168/68
== END 2018-06-04 20:19 | disposition home or self-care (01) ==
LOC: ED 19:10
DX: J44.9 Chronic obstructive pulmonary disease, unspecified (principal); F17.200 Nicotine dependence, unspecified, uncomplicated; I13.0 Hypertensive heart and chronic kidney disease with heart failure and stage 1 through stage 4 chronic kidney disease, or unspecified chronic kidney disease; I50.9 Heart failure, unspecified; N18.3 Chronic kidney disease, stage 3 (moderate); M54.9 Dorsalgia, unspecified; G89.29 Other chronic pain; E03.9 Hypothyroidism, unspecified; Z72.9 Problem related to lifestyle, unspecified; Z90.49 Acquired absence of other specified parts of digestive tract; Z90.710 Acquired absence of both cervix and uterus
CPT/HCPCS: 36415; 71045; 80053; 83605; 83880; 84484; 85025; 93005; 94640; 99284; J7620

== ENCOUNTER 2019-11-14 20:25 | Emergency (ER) | payer MEDICARE, MEDICAID ==
[~2019-11-14] VITALS: Ht 160 cm; Wt 69.0 kg
[~2019-11-14 20:25] MED LIST changes: -BENA10TA4 PO; +BENA10TA59 PO; +HYDR-3246; -HYDR-3307; +MONT10TA11 PO; -MONT10TA9 PO; -OMEP10CA4 PO; +OMEP10CA5 PO
[2019-11-14 20:38] VITALS: BP 198/82
--- NOTE | 2019-11-14 21:03 | NUR ---
PT CAME IN CO OF LBP. PT STATES SHE HAS BEEN TAKING OTC MEDS WITH NO PAIN RELIEF. PT ALSO STATES THAT "HER KIDNEY FUNCTION IS POOR. MAYBE ITS HER KIDNEYS". PT ADMITS TO HAVING SWELLING IN LOWER LEGS - CURRENTLY HAS HARRY WRAP ON LEGS TO HELP WITH SWELLING. PT IS RESTING IN [facility]. WARM BLANKETS PROVIDED.
[2019-11-14] MEDS ORDERED: ACETAMINOPHEN 500 MG TABLET PO ONE (21:30)
[2019-11-14 21:42] LABS: BASOPHILS # (AUTO) 0.08 x10^3/uL (0-0.1); BASOPHILS % (AUTO) 1 % (0-1); EOSINOPHILS % (AUTO) 3 % (1-7); LYMPHOCYTES # (AUTO) 1.88 x10^3/uL (1-3.4); LYMPHOCYTES % (AUTO) 28 % (22-44); MD NO; MEAN CORPUSCULAR HEMOGLOBIN 30.9 pg (27.0-34.8); MEAN CORPUSCULAR HGB CONC 33.2 g/dL (32.4-35.8); MEAN CORPUSCULAR VOLUME 93.1 fL (80-100); MEAN PLATELET VOLUME 7.5 fL (7.4-10.4); MONOCYTES # (AUTO) 0.44 x10^3/uL (0.2-0.8); MONOCYTES % (AUTO) 7 % (2-9); NEUTROPHILS # (AUTO) 4.09 x10^3/uL (1.8-6.8); NEUTROPHILS % (AUTO) 61 % (42-75); PLATELET COUNT 152 x10^3/uL (130-400); RED CELL DISTRIBUTION WIDTH 13.6 % (9.6-15.2)
[2019-11-14 21:51] LABS: ALBUMIN 3.1 g/dL (3.4-5.0); ANION GAP 6 mmol/L (5-15); CALCIUM 8.7 mg/dL (8.5-10.1); CHLORIDE 108 mmol/L (98-107); CREATININE 1.68 mg/dL (0.55-1.02)
--- NOTE | 2019-11-14 22:03 | NUR ---
REPORT FROM CATHY CANTU. PT SITTING UP IN BED, PARTNER AT BEDSIDE. NAD NOTED AT THIS TIME.
[2019-11-14 22:22] LABS: MICROSCOPIC INDICATED
--- NOTE | 2019-11-14 22:51 | NUR ---
BS REPORT FROM EVIE MORGAN. PT CARE TRANSFERRED AT THIS TIME. [place], APPEARS COMFORTABLE, NAD, RESP WNL. SON AT BS. WCTM.
--- NOTE | 2019-11-14 22:51 | NUR ---
REPORT TO CATHY GRIJALVA. PT SITTING UP IN BED, ERMD IN TO REASSESS AND DISCUSS DC WITH PT AND HER SON.
[2019-11-14] MEDS ORDERED: ACETAMINOPHEN 500 MG TABLET ONE (22:55)
[2019-11-14] MEDS ORDERED: CEFDINIR 300 MG CAPSULE ONE (22:55)
[2019-11-14] MEDS ORDERED: CEFDINIR 300 MG CAPSULE PO ONE (23:00)
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
--- NOTE | 2019-11-14 23:37 | NUR ---
Patient/Caregiver given discharge instructions and they have confirmed that they understand the instructions. Patient WHEELED OUT OF ED IN WHEELCHAIR. PT VERBALIZED UNDERSTANDING BUT STATES "I WONT TAKE ANTIBIOTICS" RN INFORMED PT OF IMPORTANCE OF TREATING INFECTIONS. NO BELONGINGS LEFT IN ROOM AT TIME OF DC.
== END 2019-11-14 23:40 | disposition home or self-care (01) ==
LOC: ED 22:18
DX: N30.00 Acute cystitis without hematuria (principal); M54.5 Low back pain; I13.0 Hypertensive heart and chronic kidney disease with heart failure and stage 1 through stage 4 chronic kidney disease, or unspecified chronic kidney disease; N18.3 Chronic kidney disease, stage 3 (moderate); I50.9 Heart failure, unspecified; J44.9 Chronic obstructive pulmonary disease, unspecified; E03.9 Hypothyroidism, unspecified; Z90.89 Acquired absence of other organs; Z90.49 Acquired absence of other specified parts of digestive tract; Z90.710 Acquired absence of both cervix and uterus; Z87.891 Personal history of nicotine dependence
CPT/HCPCS: 36415; 80048; 81001; 82040; 85025; 87077; 87086; 87186; 99283

== ENCOUNTER 2020-05-05 11:21 | Emergency (ER) | payer MEDICAID, MEDICARE ==
[~2020-05-05] VITALS: Ht 160 cm; Wt 68.0 kg
[~2020-05-05 11:21] MED LIST changes: +AMLO-211 PO; -AMLO10TA8 PO; -MONT10TA11 PO; +MONT10TA96 PO; -NICO-487 TD; +NICO-587 TD
--- NOTE | 2020-05-05 12:16 | NUR ---
US AT BEDSIDE.
[2020-05-05 12:24] LABS: BASOPHILS % (AUTO) 1 % (0-1); EOSINOPHILS % (AUTO) 4 % (1-7); LYMPHOCYTES % (AUTO) 21 % (22-44); MD NO; MEAN CORPUSCULAR HEMOGLOBIN 31.8 pg (27.0-34.8); MEAN CORPUSCULAR HGB CONC 33.2 g/dL (32.4-35.8); MONOCYTES % (AUTO) 5 % (2-9); NEUTROPHILS % (AUTO) 68 % (42-75); PLATELET COUNT 149 x10^3/uL (130-400); RED BLOOD COUNT 4.39 x10^6/uL (3.82-5.3)
[2020-05-05] MEDS ORDERED: SODIUM CHLORIDE FLUSH 10ML SYR IVF ONE (12:30)
[2020-05-05 12:36] LABS: ALANINE AMINOTRANSFERASE 12 U/L (12-78); ALBUMIN 3.3 g/dL (3.4-5.0); ANION GAP 4 mmol/L (5-15); CALCIUM 9.1 mg/dL (8.5-10.1); CHLORIDE 110 mmol/L (98-107); CREATININE 1.54 mg/dL (0.55-1.02)
[2020-05-05 12:40] LABS: ALKALINE PHOSPHATASE 155 U/L (45-117); BILIRUBIN,TOTAL 0.5 mg/dL (0.2-1.0); TOTAL PROTEIN 7.2 g/dL (6.4-8.2)
[2020-05-05 12:52] VITALS: BP 180/65
[2020-05-05] MEDS ORDERED: FUROSEMIDE 40 MG/4 ML IV ONE (13:30)
[2020-05-05] MEDS ORDERED: FUROSEMIDE 40 MG/4 ML ONE (13:36)
--- NOTE | 2020-05-05 14:27 | NUR ---
LATE ENTRY DT PATIENT CARE: PT REFUSED PIV AND LASIX.
== END 2020-05-05 14:28 | disposition home or self-care (01) ==
LOC: ED 12:44
DX: I83.218 Varicose veins of right lower extremity with both ulcer of other part of lower extremity and inflammation (principal); I83.228 Varicose veins of left lower extremity with both ulcer of other part of lower extremity and inflammation; I11.0 Hypertensive heart disease with heart failure; I50.9 Heart failure, unspecified; E03.9 Hypothyroidism, unspecified; J44.9 Chronic obstructive pulmonary disease, unspecified; Z87.891 Personal history of nicotine dependence; R00.9 Unspecified abnormalities of heart beat; Z72.9 Problem related to lifestyle, unspecified
CPT/HCPCS: 36415; 71045; 80053; 83880; 85025; 93970; 99285

== ENCOUNTER 2020-08-01 14:39 | Emergency (ER) | payer MEDICARE, MEDICAID ==
[~2020-08-01] VITALS: Ht 160 cm; Wt 70.0 kg
[~2020-08-01 14:39] MED LIST changes: -ASPI-515 PO; +ASPI-963 PO; -CIPR500T3 PO; +CIPR500T4 PO; -HYDR-3246; +HYDR-3248; +MONT10TA17 PO; -MONT10TA96 PO; -OXYC-307 PO; +OXYC-380 PO
[2020-08-01 14:42] VITALS: BP 213/130
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
[2020-08-01] MEDS ORDERED: HYDROmorphone 1 MG/ML, 1ML INJ ONE ×2 (15:15→15:36)
--- NOTE | 2020-08-01 15:28 | NUR ---
PT AGREEABLE TO IM DILAUDID THEN REFUSED WHEN ATTEMPTED TO ADMINISTER. STATES SHE NEEDS MORPHINE PO. ERP NOTIFIED
[2020-08-01] MEDS ORDERED: HYDROmorphone 1 MG/ML, 1ML INJ IM ONE (15:30)
--- NOTE | 2020-08-01 16:14 | NUR ---
Patient given discharge instructions and they have confirmed that they understand the instructions. Patient ambulatory with steady gait.
== END 2020-08-01 16:15 | disposition home or self-care (01) ==
LOC: ED 15:16
DX: M79.602 Pain in left arm (principal); G89.29 Other chronic pain; R94.31 Abnormal electrocardiogram [ECG] [EKG]; I11.0 Hypertensive heart disease with heart failure; I50.9 Heart failure, unspecified; E03.9 Hypothyroidism, unspecified; J44.9 Chronic obstructive pulmonary disease, unspecified; M19.90 Unspecified osteoarthritis, unspecified site
CPT/HCPCS: 93005; 96372; 99283; J1170